=== PATIENT | male | born 1960 | race Caucasian/White ===

== ENCOUNTER 2018-10-14 12:22 | Emergency (ER) | payer OTHER ==
[~2018-10-14] VITALS: Ht 190.5 cm; Wt 93.0 kg
[2018-10-14] MEDS ORDERED: METO-396 PO (12:36)
[2018-10-14 16:58] LABS: BASOPHILS % 1.1 % (0.0-2.0); EOSINOPHILS % 3.5 % (0.0-5.0); HEMATOCRIT. 41.1 % (42.0-52.0); HEMOGLOBIN. 13.9 g/dL (14.0-18.0); LYMPHOCYTES % 42.8 % (20.0-50.0); MEAN CORPUSCULAR HEMOGLOBIN 31.5 pg (28.0-32.0); MEAN PLATELET VOLUME 9.4 fl (7.4-10.4); MONOCYTES % 8.5 % (2.0-8.0); NEUTROPHILS % 44.1 % (40.0-76.0); PLATELET 253 x1000/uL (130-400); RED BLOOD CELL COUNT 4.42 mill/uL (4.7-6.1); RED CELL DISTRIBUTION WIDTH 13.6 % (11.6-14.6)
[2018-10-14 17:02] LABS: CHLORIDE 107 mEq/L (98-107)
[2018-10-14 17:06] LABS: INR 1.1; PARTIAL THROMBOPLASTIN TIME 31.6 sec (23.4-31.0); PROTHROMBIN TIME 10.6 sec (9.1-11.1)
[2018-10-14 17:07] LABS: ETHANOL BLOOD < 10 mg/dL
[2018-10-14] MEDS ORDERED: ENALAPRIL 2.5MG TABLET PO ONE (17:15)
[2018-10-14 20:42] VITALS: BP 157/61
== END 2018-10-14 20:50 | disposition home or self-care (01) ==
LOC: ER 12:22
DX: R42 Dizziness and giddiness (principal); I10 Essential (primary) hypertension; F17.200 Nicotine dependence, unspecified, uncomplicated; F32.9 Major depressive disorder, single episode, unspecified; Z98.890 Other specified postprocedural states
CPT/HCPCS: 36415; 71045; 80048; 80320; 84484; 93005; 99284; G0480